=== PATIENT | male | born 1965 | race Asian ===

== ENCOUNTER 2017-09-30 03:52 | Inpatient (IN) | payer BC ==
[~2017-09-30] VITALS: Ht 182.9 cm; Wt 120.2 kg
[2017-09-30 03:58] VITALS: BP_SYST 116
[2017-09-30] MEDS ORDERED: ONDANSETRON 4 MG ODT TAB PO ONE (04:15)
[2017-09-30 04:40] LABS: BILIRUBIN,URINE 1+ (NEGATIVE); BLOOD, URINE 2+ (NEGATIVE); CLARITY/URINE SL HAZY (CLEAR); COLOR,URINE YELLOW (YELLOW); GLUCOSE,URINE NEGATIVE (NEGATIVE); KETONES,URINE TRACE (NEGATIVE); LEUKOCYTE ESTERASE ,URINE NEGATIVE (NEGATIVE); NITRITE, URINE NEGATIVE (NEGATIVE); PH,URINE 5.5 (5.0-8.0); PROTEIN URINE 1+ (NEGATIVE); UROBILINOGEN,URINE 0.2 (0.2-1.0)
[2017-09-30 04:58] LABS: ANION GAP 13 (5-15); CALCIUM 8.8 mg/dL (8.4-11.0); CHLORIDE 95 mmol/L (98-107); CREATININE 2.49 mg/dL (0.55-1.30); GLUCOSE 151 mg/dL (70-99); POTASSIUM 3.7 mmol/L (3.5-5.1); SODIUM SERUM 131 mmol/L (136-145); UREA NITROGEN, BLOOD 46 mg/dL (8-21)
[2017-09-30 05:03] LABS: BASOPHILS % (AUTO) 0.3 % (0.0-2.0); EOSINOPHILS % (AUTO) 0.1 % (0.0-4.0); HEMATOCRIT 46.9 % (36-54); HEMOGLOBIN 15.4 g/dL (14.0-18.0); LYMPHOCYTES # (AUTO) 0.9 K/uL (1.0-5.5); LYMPHOCYTES % (AUTO) 5.5 % (20.5-51.5); MEAN CORPUSCULAR HEMOGLOBIN 31 pg (27-31); MEAN CORPUSCULAR HGB CONC 33 % (32-36); MEAN CORPUSCULAR VOLUME 93 fL (79.0-98.0); MONOCYTES # (AUTO) 0.6 K/uL (0.0-1.0); MONOCYTES % (AUTO) 3.7 % (1.7-9.3); NEUTROPHILS # (AUTO) 14.1 K/uL (1.8-7.7); NEUTROPHILS % (AUTO) 90.4 % (40.0-70.0); PLATELET COUNT (AUTO) 122 K/uL (130-430); RED BLOOD CELL COUNT(AUTO) 5.06 MIL/uL (4.2-6.2); RED CELL DISTRIBUTION WIDTH 12.8 % (9.0-15.0); WHITE BLOOD COUNT (AUTO) 15.6 K/uL (4.8-10.8)
[2017-09-30 05:06] LABS: GFR AFRICAN AMERICAN 35 mL/min (>90)
[2017-09-30 05:07] LABS: ALANINE AMINOTRANSFERASE 275 U/L (12-78); ALBUMIN 3.5 g/dL (3.4-4.8); ASPARTATE AMINOTRANSFERASE 107 U/L (10-37); LIPASE 306 U/L (73-393)
[2017-09-30 05:09] LABS: RBC,URINE 0-3 /HPF (0-3)
[2017-09-30 05:10] LABS: BACTERIA,URINE FEW /HPF (None Seen); COARSE GRANULAR CASTS,URINE 0-10 /LPF (None Seen); MUCUS,URINE None Seen /LPF (None Seen); URINE AMORPHOUS URATE 2+ /HPF (None Seen)
[2017-09-30] MEDS ORDERED: MORPHINE 2 MG/ML INJ. SYRINGE IVP ONE (05:30)
[2017-09-30] MEDS ORDERED: NACL 0.9% 1,000 ML IV ONE ×3 (05:30→07:15)
[2017-09-30 06:07] LABS: INR 1.3 (0.80-1.20); PROTHROMBIN TIME 13.3 SECS (9.5-12.5)
[2017-09-30] MEDS ORDERED: ONDANSETRON HCL 4 MG/2 ML VIAL IVP PRN (07:00)
[2017-09-30] MEDS ORDERED: MORPHINE 2 MG/ML INJ. SYRINGE IVP PRN ×2 (07:00→14:30)
[2017-09-30] MEDS ORDERED: cefTRIAXone 1 GM IVPB PREMIX 50 ML IV ONE (07:14)
[2017-09-30 07:36] VITALS: BP_SYST 115
[2017-09-30] MEDS: DOCUSATE SODIUM 100 MG CAPSULE PO SCH (09:00)
[2017-09-30] MEDS ORDERED: cefTRIAXone 1 GM in D5W 50 ML IV SCH (09:00)
[2017-09-30] MEDS: NACL 0.9% 1,000 ML IV SCH ×2 (09:17→17:24)
[2017-09-30 09:31] LABS: FREE T4 (FREE THYROXINE) 0.9 ng/dL (0.6-1.6); PHOSPHORUS 4.3 mg/dL (2.7-4.5); THYROID STIMULATING HORMONE 1.48 uIu/mL (0.34-4.82)
[2017-09-30] MEDS ORDERED: HYDROcodone/ACETAMIN 10-325 MG TAB PO PRN (14:30)
[2017-09-30] MEDS ORDERED: ONDANSETRON HCL 4 MG/2 ML VIAL IM PRN (14:30)
[2017-09-30] MEDS ORDERED: POTASSIUM CHLORIDE 20 MEQ TAB.PRT.SR PO PRN (14:30)
[2017-09-30] MEDS ORDERED: SIMETHICONE 80 MG TAB.CHEW PO PRN (14:30)
[2017-09-30] MEDS ORDERED: ZOLPIDEM TARTRATE 5 MG TABLET PO PRN (14:30)
[2017-09-30] MEDS ORDERED: LORazepam 2 MG/ML VIAL IVP PRN (14:30)
[2017-09-30] MEDS ORDERED: BISACODYL 10 MG/SUPPOSITORY RC PRN (14:30)
[2017-09-30 16:35] VITALS: BP_SYST 120
[2017-09-30] MEDS ORDERED: NS IRRIG SOLN 1000 ML IR ONE (18:45)
[2017-09-30] MEDS ORDERED: MIDAZOLAM HCL 5 MG/5 ML VIAL IVP ONE (18:45)
[2017-09-30] MEDS ORDERED: PIPERACILLIN/TAZOBACTAM 3.375 GM/VIAL (ZOSYN) IV ONE (18:45)
[2017-09-30] MEDS ORDERED: SEVOFLURANE 15 MIN GAS INH ONE (18:45)
[2017-09-30] MEDS ORDERED: PROPOFOL 200MG/ 20ML VIAL (DIPRIVAN) IV ONE (18:45)
[2017-09-30] MEDS ORDERED: SUGAMMADEX SODIUM 200 MG/2 ML VIAL IV ONE (18:45)
[2017-09-30] MEDS ORDERED: ROCURONIUM BROMIDE 10 MG/ML (ZEMURON) IV ONE (18:45)
[2017-09-30] MEDS ORDERED: ONDANSETRON HCL 4 MG/2 ML VIAL IVP ONE (18:45)
[2017-09-30] MEDS ORDERED: LR 1,000 ML IV.SOLN IV ONE (18:45)
[2017-09-30] MEDS ORDERED: fentaNYL CITRATE/PF 100 MCG/2 ML AMP IVP ONE (18:45)
[2017-09-30] MEDS ORDERED: LR 1,000 ML IV SCH (20:06)
[2017-09-30] MEDS ORDERED: METOCLOPRAMIDE HCL 10 MG/2 ML VIAL IVP PRN (20:15)
[2017-09-30] MEDS ORDERED: MORPHINE 4 MG/ML INJ. SYRINGE IVP PRN ×3 (20:15)
[2017-09-30] MEDS ORDERED: HYDROcodone/ACETAMIN 5-325 MG TAB (NORCO/ VICODIN) PO PRN (20:30)
[2017-09-30] MEDS ORDERED: MORPHINE 4 MG/ML INJ. SYRINGE ONE (20:43)
[2017-09-30 21:29] VITALS: BP_SYST 115
[2017-09-30 21:40] VITALS: BP_SYST 127
[2017-10-01 00:25] VITALS: BP_SYST 118
[2017-10-01] MEDS: NACL 0.9% 1,000 ML IV SCH ×4 (02:57→15:07)
[2017-10-01] MEDS: PIPERACILLIN/TAZO 3.375/DEX-IS 50 ML IV SCH ×5 (03:48→18:11)
[2017-10-01] MEDS: DOCUSATE SODIUM 100 MG CAPSULE PO SCH ×2 (03:52→08:37)
[2017-10-01 07:05] LABS: ALBUMIN 2.9 g/dL (3.4-4.8); BILIRUBIN,DIRECT 1.4 mg/dL (0.0-0.3); CALCIUM 8.2 mg/dL (8.4-11.0); CREATININE 1.16 mg/dL (0.55-1.30); PHOSPHORUS 2.8 mg/dL (2.7-4.5); POTASSIUM 3.4 mmol/L (3.5-5.1); TOTAL BILIRUBIN 2.2 mg/dL (0.0-1.0)
[2017-10-01 07:30] LABS: BASOPHILS % (AUTO) 0.2 % (0.0-2.0); EOSINOPHILS % (AUTO) 0.2 % (0.0-4.0); HEMATOCRIT 43.3 % (36-54); HEMOGLOBIN 14.5 g/dL (14.0-18.0); LYMPHOCYTES # (AUTO) 0.7 K/uL (1.0-5.5); LYMPHOCYTES % (AUTO) 5.8 % (20.5-51.5); MEAN CORPUSCULAR HEMOGLOBIN 31 pg (27-31); MEAN CORPUSCULAR HGB CONC 34 % (32-36); MEAN CORPUSCULAR VOLUME 93 fL (79.0-98.0); MONOCYTES # (AUTO) 0.5 K/uL (0.0-1.0); MONOCYTES % (AUTO) 4.6 % (1.7-9.3); NEUTROPHILS # (AUTO) 10.4 K/uL (1.8-7.7); NEUTROPHILS % (AUTO) 89.2 % (40.0-70.0); PLATELET COUNT (AUTO) 133 K/uL (130-430); RED BLOOD CELL COUNT(AUTO) 4.66 MIL/uL (4.2-6.2); RED CELL DISTRIBUTION WIDTH 12.6 % (9.0-15.0); WHITE BLOOD COUNT (AUTO) 11.6 K/uL (4.8-10.8)
[2017-10-01 08:39] VITALS: BP_SYST 119
[2017-10-01 11:50] LABS: HEMOGLOBIN A1C 6.2 % (4.8-5.6)
[2017-10-01 13:22] VITALS: BP_SYST 118
[2017-10-01 14:35] LABS: T4 (THYROXINE) 6.5 ug/dL (4.5-12.0)
[2017-10-01 16:23] VITALS: BP_SYST 113
[2017-10-01] MEDS ORDERED: HYDR-1189 PO (18:15)
[2017-10-01] MEDS ORDERED: AMOX-426 PO (18:15)
[2017-10-01] MEDS ORDERED: NORMAL SALINE 5 ML DISP.SYRIN IVF SCH (18:15)
[2017-10-01 18:30] VITALS: BP_SYST 113
== END 2017-10-01 19:10 | disposition home or self-care (01) | DRG 853 ==
LOC: SED 03:52 → SMU 06:57
PROVIDERS: ADMIT Family Medicine; ATTEND Family Medicine
PROC: 0FB04ZX Excision of Liver, Percutaneous Endoscopic Approach, Diagnostic (ICD-10-PCS; 2017-09-30)
PROC: 0FT44ZZ Resection of Gallbladder, Percutaneous Endoscopic Approach (ICD-10-PCS; principal; 2017-09-30 20:00)
DX: A41.9 Sepsis, unspecified organism (principal); N17.0 Acute kidney failure with tubular necrosis; K80.00 Calculus of gallbladder with acute cholecystitis without obstruction; E87.1 Hypo-osmolality and hyponatremia; I48.91 Unspecified atrial fibrillation; K57.92 Diverticulitis of intestine, part unspecified, without perforation or abscess without bleeding; K76.89 Other specified diseases of liver; E87.6 Hypokalemia; G47.33 Obstructive sleep apnea (adult) (pediatric); R79.1 Abnormal coagulation profile; E66.9 Obesity, unspecified; K76.0 Fatty (change of) liver, not elsewhere classified; Z68.35 Body mass index [BMI] 35.0-35.9, adult
CPT/HCPCS: 36415; 71045; 74181; 76700-TC; 80053; 80061; 80076; 81000-TC; 82150-TC; 83036; 83605; 83690-TC; 83735-TC; 83880; 84100-TC; 84436; 84439; 84443-TC; 84479; 84484; 85025; 85610-TC; 85730-TC; 87040-TC; 87081; 88304; 88307; 88313; 88341; 88342; 88361; 94010; 94660; 94760; 96361; 96374; 99285; C9399; J0696; J2250; J2270; J2405; J2543; J2704; J3010; J7030; J7060; J7120; Q0162